=== PATIENT | female | born 1955 | race Caucasian/White ===

== ENCOUNTER 2024-01-20 11:48 | Day surgery (SDC) | payer MEDICARE, OTHER, SELFPAY ==
--- NOTE | 2024-01-20 12:23 | FL_ITS ---
[address] [address] Patient Name: KALE KIM MRN: [id number] date: 1955 Sex: F Assigned Patient Location: LAB Current Patient Location: LAB Accession/Order Number: [id number] Exam Date: 01/20/2024 12:35 Report Date: 01/20/2024 13:38 At the request of: BASILIA KUNZ Procedure: FL arthrogram hip EXAMINATION: FL arthrogram hip, FL guided needle placement HISTORY: Tear of gluteus minimus tendon Dose: Unknown COMPARISON: No relevant comparison available. TECHNIQUE: An arthrogram was performed under fluoroscopic guidance using non-ionic contrast material in the usual sterile manner after obtaining informed consent. Standard level fluoroscopic mode of operation utilized. FINDINGS: JOINT: Right NEEDLE: 25 gauge, 3.5 spinal needle. MEDICATION: 5cc buffered 1% lidocaine for subcutaneous anesthesia 2cc Omnipaque-240 iodinated contrast to visualize the joint space 40 mg Depo-Medrol and one mL, 3 mL's of 0.5% bupivacaine, 3 cc of sterile saline injected into the joint space. TECHNIQUE: Anterior approach with prior localization of the femoral artery. COMPLICATIONS: None. FL/FL arthrogram hip IMPRESSION: Technically successful right hip therapeutic arthrogram Electronically authenticated by: DARIA SOTO Date: 01/20/2024 13:38
[2024-01-20 12:24] LABS: INR 1.38; Prothrombin Time 14.2 sec (9.0-11.6)
--- NOTE | 2024-01-20 12:25 | FL_ITS ---
[address] [address] Patient Name: KALE KIM MRN: [id number] date: 1955 Sex: F Assigned Patient Location: LAB Current Patient Location: LAB Accession/Order Number: [id number] Exam Date: 01/20/2024 12:35 Report Date: 01/20/2024 13:38 At the request of: BASILIA KUNZ Procedure: FL guided needle placement EXAMINATION: FL arthrogram hip, FL guided needle placement HISTORY: Tear of gluteus minimus tendon Dose: Unknown COMPARISON: No relevant comparison available. TECHNIQUE: An arthrogram was performed under fluoroscopic guidance using non-ionic contrast material in the usual sterile manner after obtaining informed consent. Standard level fluoroscopic mode of operation utilized. FINDINGS: JOINT: Right NEEDLE: 25 gauge, 3.5 spinal needle. MEDICATION: 5cc buffered 1% lidocaine for subcutaneous anesthesia 2cc Omnipaque-240 iodinated contrast to visualize the joint space 40 mg Depo-Medrol and one mL, 3 mL's of 0.5% bupivacaine, 3 cc of sterile saline injected into the joint space. TECHNIQUE: Anterior approach with prior localization of the femoral artery. COMPLICATIONS: None. FL/FL guided needle placement IMPRESSION: Technically successful right hip therapeutic arthrogram Electronically authenticated by: DARIA SOTO Date: 01/20/2024 13:38
[2024-01-20] MEDS: LIDOCAINE HCL 10 ML, SODIUM BICARBONATE 1 MEQ INJ (13:20)
[2024-01-20] MEDS: TRIAMCINOLONE ACETONIDE 40 MG/ML VIAL INJ (13:20)
[2024-01-20] MEDS: BUPIVACAINE HCL 0.5% PF 50 MG/10 ML VIAL 2 ML INJ (13:20)
--- NOTE | 2024-01-20 13:54 | SUR.PREOP ---
01/13/24 Pt instructed on procedure, date, time, and prep. Pt made aware to hold Coumadin x 5 days prior to procedure and have INR drawn 30 minutes prior to procedure.
== END 2024-01-20 13:40 | disposition home or self-care (01) ==
LOC: LAB 11:54
PROVIDERS: Radiology Diagnostic Radiology; PCP Family Medicine; Visit Provider Orthopaedic Surgery
DX: S76.011A Strain of muscle, fascia and tendon of right hip, initial encounter (principal); Z79.01 Long term (current) use of anticoagulants
CPT/HCPCS: 20610; 27093; 36415; 77002; 85610